=== PATIENT | female | born 1955 | race African-American/Black ===

== ENCOUNTER 2020-07-23 06:10 | Day surgery (SDC) | payer BC, OTHER ==
--- NOTE | 2020-07-19 13:57 | RAD REPORT ---
EXAM DESCRIPTION: RAD - Chest Pa And Lat (2 Views) - 07/19/2020 1:46 pm CLINICAL HISTORY: pre-op, patient pending hand surgery COMPARISON: None TECHNIQUE: Frontal and lateral views of the chest were obtained. FINDINGS: The lungs are clear. Heart size is normal and central vasculature is within normal limit s. No pleural effusion or pneumothorax seen. No acute bony finding noted. No aortic abnormality. IMPRESSION: No acute cardiopulmonary process.
[2020-07-19 14:16] LABS: Basophils % 1.3 % (0-1.3); Hematocrit 37.7 % (36.0-45.0); Lymphocytes % 32.5 % (15.3-44.8); MPV 7.5 fL (7.6-11.3); RBC Red Blood Cell Count 4.35 M/uL (3.86-4.86)
[2020-07-19 14:20] LABS: Protime INR 0.98
[2020-07-19 14:28] LABS: Potassium 3.8 mmol/L (3.5-5.1)
--- NOTE | 2020-07-21 05:06 | EKG ---
Test Date: 2020-07-19 Test Time: 13:32:11 Licensed Reactor Operator: Bouchra MEASUREMENT RESULTS: Intervals: Rate: 64 MT: 182 QRSD: 82 QT: 422 QTc: 435 Walton: P: 40 MT: 182 QRS: -4 T: 17 INTERPRETIVE STATEMENTS: Normal sinus rhythm Moderate voltage criteria for LVH, may be normal variant Borderline ECG No previous ECG available for comparison Electronically Signed On 07-21-20 05:03:52 [employer]ARD[employer]IPMENT MECH[employer]IC by Kwabena Fleming
[2020-07-23] MEDS ORDERED: Ringers Lactate 1,000 ML IV ONE (06:51)
[2020-07-23] MEDS ORDERED: CEFAZOLIN/SWI 1gm 1 GM/10 ML SYR ONE (06:51)
[2020-07-23] MEDS ORDERED: KETOROLAC 30 MG/ML INJ ONE (08:21)
[2020-07-23] MEDS ORDERED: propofoL 200 MG/20 ML VIAL IV ONE (08:21)
[2020-07-23] MEDS ORDERED: MIDAZOLAM HCL 2 MG/2 ML INJ ONE (08:21)
[2020-07-23] MEDS ORDERED: FENTANYL CITR 100 MCG/2 ML ONE (08:21)
[2020-07-23] MEDS ORDERED: dexAMETHasone 10 MG/ML VIAL ONE (08:21)
[2020-07-23] MEDS ORDERED: LIDOCAINE 2% MPF 5 ML VIAL ONE (08:22)
[2020-07-23] MEDS ORDERED: ONDANSETRON 4 MG/2 ML VIAL ONE (08:24)
[2020-07-23] MEDS ORDERED: ETOMIDATE 20 MG/10 ML VIAL IV ONE (08:58)
[2020-07-23] MEDS: BUPIVACAINE 0.25% PF 30 ML VIAL ONE ×2 (09:08→09:15)
--- NOTE | 2020-07-23 09:31 | P.BOP ---
Preoperative diagnosis: right ring finger trigger digit Postoperative diagnosis: same Primary procedure: right ring finger A1 albino release Cat Swamper: NONE,NONE Estimated blood loss: 3 cc Specimen: none Findings: see dictation Anesthesia: General Complications: None Implants: none Fluids & blood products: per anesthesia record Transferred to: Recovery Room Condition: Good
[2020-07-23 10:44] VITALS: BP 118/62; TEMP 96.3; O2SAT 100
--- NOTE | 2020-07-25 21:41 | OP ---
Date of Procedure: 07/23/2020 Surgeon: Andrea Valle MD Preoperative Diagnosis: Right ring finger trigger digit. Postoperative Diagnosis: Right ring finger trigger digit. Procedure Performed: Right ring finger A1 albino release. Anesthesia: General LMA. Fluids: Per Anesthesia record. Estimated Blood Loss: 3 cc. Complications: None. Implants: None. Indication For Procedure: Shannon is a 65-year-old female, who presented to my clinic with signs, sympt oms, and physical exam findings consistent with a right ring finger trigger digit. The patient faile d conservative treatment measures including corticosteroid injections. Given her continued pain and triggering, we recommended operative treatment. Description Of Procedure: After informed consent was obtained, the patient was identified in the pre operative holding area. The right upper extremity was marked. The patient was then taken back to e operating room, transferred to the operative table in supine fashion, placed under general LMA anes thesia. The right upper extremity was then prepped and draped in usual sterile fashion. A time-out was initiated. The correct patient and procedure were confirmed and identified. The patient did rec eive her preoperative prophylactic antibiotics. Esmarch was inflated, was used to exsanguinate the r ight upper extremity and then tourniquet was inflated to 250 mmHg. Approximately, a 1 cm longitudina l incision was made centered over the A1 albino of the right ring finger. Dissection was then taken down the flexor tendon sheath, which was identified. A 15 blade was then used to incise the flexor t endon sheath and there was a significant amount of tenosynovial fluid that was expressed. The flexor tendon sheath was released along the entirety of the A1 albino. The flexor tendon was then brought out of the incision. There was full excursion of the tendon without any triggering. The wound was t hen irrigated thoroughly with normal saline. The skin was approximated with 5-[address] essings were applied. The patient was awakened and transferred to PACU in stable condition. Postoperative Plan: The patient will be nonweightbearing of her right upper extremity. Physical the rapy will be consulted for the patient to work on home exercises and follow up in clinic in 1 week fo r suture removal. CV/MODL Voice ID: [id number] Report ID: [id number]
== END 2020-07-23 10:46 | disposition home health service (06) ==
LOC: OR 06:10
PROVIDERS: ATTEND Orthopaedic Surgery Sports Medicine
PROC: 0LN70ZZ Release Right Hand Tendon, Open Approach (ICD-10-PCS; principal; 2020-07-23 08:30)
DX: M65.341 Trigger finger, right ring finger (principal); Z20.822 Contact with and (suspected) exposure to COVID-19
CPT/HCPCS: 93005; 85025; 80048; 36415; 85610; 85730; 71046; 26055; U0002; J2250; J3010; J1100; J0690; J7120; J2405; J2704

== ENCOUNTER 2025-03-11 17:05 | Emergency (ER) | payer BC, OTHER ==
--- NOTE | 2025-03-11 18:14 | RAD REPORT ---
EXAMINATION: Spine Lumbar Wo Con CLINICAL INDICATION: Female, 69 years old. Pain;Swelling TECHNIQUE: Axial CT images were obtained through the lumbar spine in soft tissue and bone windows wit hout intravenous contrast. Coronal and Sagittal reformatted images were created from the data set. One or more of the following dose reduction techniques were used: Automated exposure control, adjustm ent of the mA and/ or kV according to patient size, and/or iterative reconstruction. Unless otherwise specified, incidental findings do not require dedicated imaging follow-up. [id number]. COMPARISON: No prior exams FINDINGS: For purposes of this dictation, it is assumed that there are 5 non rib-bearing lumbar type vertebrae, and the most caudal fully segmented lumbar vertebra is labeled L5. ALIGNMENT: Grade 1 anterolisthesis of L4 and L5. BONES: No significant soft tissue abnormalities. No aggressive osseous lesions. DEGENERATIVE: Neural foraminal narrowing is present bilaterally at L4-5 that is moderate. There is un covering of the disc. SOFT TISSUE: No soft tissue abnormalities. IMPRESSION: No acute lumbar spine abnormalities.
--- NOTE | 2025-03-11 19:28 | ER ---
Nurse's Notes [facility] Name: Shannon Hernandez Age: 69 yrs Sex: Female : 1955 Arrival Date: 03/11/2025 Time: 17:05 Bed 15 Private MD: Diagnosis: Low back pain Presentation: 03/11 17:20 Chief complaint: Patient states: LEFT FLANK PAIN RADIATING TO ABD x4 DAYS. Coronavirus bp screen: At this time, the client does not indicate any symptoms associated with coronavirus-19. Ebola Screen: No symptoms or risks identified at this time. Initial Sepsis Screen: Does the patient meet any 2 criteria? No. Patient's initial sepsis screen is negative. Does the patient have a suspected source of infection? No. Patient's initial sepsis screen is negative. Risk Assessment: Do you want to hurt yourself or someone else? Patient reports no desire to harm self or others. Onset of symptoms is unknown. 17:20 Method Of Arrival: Ambulatory bp 17:20 Acuity: ANAND 3 bp Historical: - Allergies: 17:21 No Known Allergies; bp - PMHx: 17:21 Hypertensive disorder; bp - Immunization history:: Adult Immunizations up to date. - Infectious Disease History:: Denies. - Social history:: Patient/guardian denies using Smoking status: Patient denies any tobacco usage or history of. Screenin:50 [facility] ED Fall Risk Assessment (Adult) History of falling in the last 3 months, kd4 including since admission No falls in past 3 months (0 pts) Confusion or Disorientation No (0 pts) Intoxicated or Sedated No (0 pts) Impaired Gait No (0 pts) Mobility Assist Device Used No (0 pt) Altered Elimination No (0 pt) Score/Fall Risk Level 0 - 2 = Low Risk Oriented to surroundings, Maintained a safe environment. Abuse screen: Denies threats or abuse. Nutritional screening: No deficits noted. Tuberculosis screening: No symptoms or risk factors identified. Assessment: 19:50 General: Appears in no apparent distress. comfortable, Behavior is calm, cooperative, kd4 appropriate for age. Pain: Complains of pain in LOWER BACK Pain currently is 5 out of 10 on a pain scale. Neuro: No deficits noted. Cardiovascular: No deficits noted. Denies chest pain, shortness of breath. Respiratory: No deficits noted. GI: Patient currently denies nausea, vomiting. 19:52 General: Just received patient from triage a/o x 4, c/o of lower back pain since kd4 Wednesday 09/20 that increase with movement, denies trauma,cp,sob.. Vital Signs: 17:20 BP 164 / 84; Pulse 71; Resp 16; Temp 97.1; Pulse Ox 100% ; bp 19:54 BP 151 / 79; Pulse 64; Resp 19; Temp 98; Pulse Ox 100% ; Pain 5/10; kd4 19:54 Pain Scale: Adult kd4 [place] Coma Score: 19:50 Eye Response: spontaneous(4). Verbal Response: oriented(5). Motor Response: obeys kd4 commands(6). Total: 15. ED Course: 17:12 Patient arrived in ED. al6 17:13 [facility]ll[facility]-C [facility]. dr5 17:13 Andrei Masterson DO is Attending Physician. dr5 17:21 Triage completed. bp 17:21 Arm band placed on. bp 17:58 CT Lumbar Spine Wo Con In Process Unspecified. EDMS 19:34 Miguelina Dubon, RN is Primary Nurse. kd4 19:50 Patient has correct armband on for positive identification. Pulse ox on. NIBP on. kd4 19:50 No provider procedures requiring assistance completed. kd4 20:10 Provided Education on: d/c instruction. kd4 Administered Medications: 19:54 Drug: Ketorolac IM 30 mg IM once Route: IM; Site: right deltoid; kd4 20:08 Follow up: Response: No adverse reaction kd4 19:54 Drug: HYDROcodone-acetaminophen PO 5 mg-325 mg 2 tabs PO once Route: PO; kd4 20:08 Follow up: Response: No adverse reaction kd4 19:54 Drug: Cyclobenzaprine PO 10 mg PO once Route: PO; kd4 20:08 Follow up: Response: No adverse reaction kd4 Medication: 19:50 VIS not applicable for this client. kd4 Outcome: 19:28 Discharge ordered by . dr5 20:07 Discharged to home ambulatory, kd4 20:07 Condition: stable 20:07 Discharge instructions given to patient, Instructed on discharge instructions, follow up and referral plans. medication usage, Demonstrated understanding of instructions, follow-up care, medications, Prescriptions given X 3, 20:11 Patient left the ED. kd4 Signatures: Dispatcher [employer] EDDoug Flanagan RN RN Miguelina Montes RN RN kd4 Todd Ulloa, REYNALDO-C AEROSPACE MANAGER-5 Anna Broussard
--- NOTE | 2025-03-11 19:28 | EDPHYS ---
Physician Documentation [facility] Name: Shannon Hernandez Age: 69 yrs Sex: Female : 1955 Arrival Date: 03/11/2025 Time: 17:05 Bed 15 Private MD: ED Physician Andrei Masterson HPI: 03/11 20:02 This 69 yrs old Black Female presents to ER via Ambulatory with complaints of Low Back dr5 Pain. 20:02 Onset: The symptoms/episode began/occurred 4 day(s) ago. Patient is a 69-year-old dr5 female with history of hypertension coming in with left lower back pain that is been going on for 4 days. Patient denies perirectal numbness, numbness tingling in bilateral lower legs, bowel or bladder incontinence. Patient reports worse when bending over.. Historical: - Allergies: 17:21 No Known Allergies; bp - PMHx: 17:21 Hypertensive disorder; bp - Immunization history:: Adult Immunizations up to date. - Infectious Disease History:: Denies. - Social history:: Patient/guardian denies using Smoking status: Patient denies any tobacco usage or history of. ROS: 20:02 Constitutional: as per hpi dr5 Exam: 20:02 Constitutional: This is a well developed, well nourished patient who is awake, alert, dr5 and in no acute distress. Head/Face: Normocephalic, atraumatic. Eyes: Pupils equal round and reactive to light, extra-ocular motions intact. Lids and lashes normal. Conjunctiva and sclera are non-icteric and not injected. Cornea within normal limits. Periorbital areas with no swelling, redness, or edema. Neck: Trachea midline, no thyromegaly or masses palpated, and no cervical lymphadenopathy. Supple, full range of motion without nuchal rigidity, or vertebral point tenderness. No Meningismus. Chest/axilla: Normal chest wall appearance and motion. Nontender with no deformity. No lesions are appreciated. Cardiovascular: Regular rate and rhythm with a normal S1 and S2. Normal PMI, no JVD. No pulse deficits. Respiratory: Lungs have equal breath sounds bilaterally, clear to auscultation. No rales, rhonchi or wheezes noted. No increased work of breathing, no retractions or nasal flaring. Abdomen/GI: Soft, non-tender, non-distended Back: No spinal tenderness. No costovertebral tenderness. Full range of motion. + SLR Skin: Warm, dry with normal turgor. Normal color with no rashes, no lesions, and no evidence of cellulitis. MS/ Extremity: Pulses equal, no cyanosis. Neurovascular intact. Full, normal range of motion. Neuro: Awake and alert, GCS 15, oriented to person, place, time, and situation. Cranial nerves II-XII grossly intact. Motor strength 5/5 in all extremities. Sensory grossly intact. Cerebellar exam normal. Normal gait. Vital Signs: 17:20 BP 164 / 84; Pulse 71; Resp 16; Temp 97.1; Pulse Ox 100% ; bp 19:54 BP 151 / 79; Pulse 64; Resp 19; Temp 98; Pulse Ox 100% ; Pain 5/10; kd4 19:54 Pain Scale: Adult kd4 [place] Coma Score: 19:50 Eye Response: spontaneous(4). Verbal Response: oriented(5). Motor Response: obeys kd4 commands(6). Total: 15. MDM: 17:13 Medical Screening Exam initiated dr5 20:02 Differential diagnosis: arthritis, strain, fracture, sciatica. Data reviewed: vital dr5 signs, nurses notes, radiologic studies, CT scan. Consideration of Admission/Observation Escalation of care including admission/observation considered. Escalation considered patient had back pain red flags such as bowel or bladder incontinence.. I considered the following discharge prescriptions or medication management in the emergency department I discussed and recommended Over The Counter medications, Medications were administered in the Emergency Department. See MAR. Care significantly affected by the following chronic conditions: Hypertension. Care significantly affected by the following Social Determinants of Health: Poor access to healthcare and/or lack of insurance, Poor access to transportation, Problems related to employment. Counseling: I had a detailed discussion with the patient and/or guardian regarding the historical points, exam findings, and any diagnostic results supporting the discharge/admit diagnosis, the presence of at least one elevated blood pressure reading (>120/80) during this emergency department visit, radiology results, the need for outpatient follow up, for definitive care, a family practitioner, to return to the emergency department if symptoms worsen or persist or if there are any questions or concerns that arise at home. Medication response: Toradol, cyclobenzaprine, [place]. Response to treatment: the patient's symptoms have resolved after treatment. Special discussion: I discussed with the patient/guardian in detail that at this point there is no indication for admission to the hospital. It is understood, however, that if the symptoms persist or worsen the patient needs to return immediately for re-evaluation. Based on the history and exam findings, there is no indication for further emergent testing or inpatient evaluation. I discussed with the patient/guardian the need to see the orthopedic surgeon for further evaluation of the symptoms. I discussed with the patient/guardian the need to see the primary care provider for further evaluation of the symptoms. ED course: Patient reports feeling better after medication. Will give patient medication to take at home. CT results printed and given to patient to take to primary care doctor. All questions answered. Strict ER precautions given. 03/11 17:26 Order name: CT Lumbar Spine Wo Con; Complete Time: 18:25 dr5 Administered Medications: 19:54 Drug: Ketorolac IM 30 mg IM once Route: IM; Site: right deltoid; kd4 20:08 Follow up: Response: No adverse reaction kd4 19:54 Drug: HYDROcodone-acetaminophen PO 5 mg-325 mg 2 tabs PO once Route: PO; kd4 20:08 Follow up: Response: No adverse reaction kd4 19:54 Drug: Cyclobenzaprine PO 10 mg PO once Route: PO; kd4 20:08 Follow up: Response: No adverse reaction kd4 Disposition Summary: 03/11/25 19:28 Discharge Ordered Notes: Location: Home dr5 Condition: Stable dr5 Diagnosis - Low back pain dr5 Followup: dr5 - With: Emergency Department - When: As needed - Reason: Worsening of condition Followup: dr5 - With: Private Physician - When: 1 - 2 days - Reason: Recheck today's complaints, Continuance of care, Re-evaluation by your physician Discharge Instructions: - Discharge Summary Sheet dr5 - Acute Back Pain, Adult dr5 Forms: - Medication Reconciliation Form dr5 - Prescription Opioid Use dr5 - Patient Portal Instructions dr5 - Leadership Thank You Letter dr5 Prescriptions: - Ibuprofen 800 mg Oral Tablet - take 1 tablet ORAL route every 12 hours As needed take with food; 20 tablet; dr5 Refills: 0, Product Selection Permitted - Cyclobenzaprine 10 mg Oral Tablet - take 1 tablet ORAL route every 8 hours As needed; 30 tablet; Refills: 0, dr5 Product Selection Permitted - Tramadol 50 mg Oral Tablet - take 1 tablet ORAL route every 8 hours as needed; 12 tablet; Refills: 0, dr5 Product Selection Permitted Signatures: Dispatcher [employer] Doug Elaine, RN RN Miguelina Montes RN RN kd4 Todd Ulloa, RN INTERVENTIONAL-C RN INTERVENTIONAL-Cdr5 Corrections: (The following items were deleted from the chart) 17:26 17:26 Spine Lumbar Wo Con+CT.RAD.BRZ ordered. EDMS EDMS
[2025-03-11] MEDS ORDERED: KETOROLAC 30 MG/ML INJ ONE (19:42)
[2025-03-11] MEDS ORDERED: CYCLOBENZAPRINE 10 MG TAB ONE (19:42)
[2025-03-11] MEDS ORDERED: HYDROCODONE/APAP 5/325 MG TAB ONE (19:43)
[2025-03-11 20:16] VITALS: O2SAT 100
[2025-03-11 20:18] VITALS: BP 151/79; TEMP 98
== END 2025-03-11 20:11 | disposition home or self-care (01) ==
LOC: ER 17:05
DX: M54.50 Low back pain, unspecified (principal)
CPT/HCPCS: 72131; 96372; 99284; J1885